=== PATIENT | female | born 2000 | race Two or more races ===

== ENCOUNTER 2024-10-01 14:39 | Emergency (ER) | payer SELFPAY ==
--- NOTE | 2024-10-01 | XR_ITS ---
Examination: PA lateral chest 2 views TECHNIQUE: Upright PA lateral chest 2 views Exam date and time: October 01, 2024 1718 hours INDICATIONS: Lightheadedness chest pain today, fever beginning 2 days ago FINDINGS: Normal heart size The lungs are clear. The osseous structures are intact IMPRESSION: No active disease
[2024-10-01 14:47] VITALS: BP 115/73; PULSE 99; RESP 17; TEMP 37.2; O2SAT 99; BMI 18.6
--- NOTE | 2024-10-01 15:07 | XR_ITS ---
Examination: CT brain head without contrast. 2-D sagittal coronal reconstructions Date and time of exam:October 01, 2024 1613 hours INDICATIONS: Dizziness loss of consciousness episode today followed by syncope CTDI: vol (mGy):45.2 DLP: (mGycm):915 Technique: Multiple CT axial sections of the brain have been obtained, 5 mm slice thickness. Contrast has not been administered. 2-D sagittal, coronal reconstructions have been obtained Low dose protocols were performed. One or more of the following dose reduction techniques were used; automated exposure control, adjustment of the mA and/or KV according to patient size, use of iterative reconstruction technique. Findings: No significant ventricular enlargement. Intra-axial or extra-axial hemorrhage density is not seen. No mass effect or midline shift Basal cisterns are not remarkable. Fourth ventricle is midline. Cranial vault intact. Impression: Negative for acute hemorrhage, mass effect or midline shift
--- NOTE | 2024-10-01 15:07 | EKG_ITS ---
[facility] Test Date: 2024-10-01 Pat Name: GINNY SHEPHERD Department: Room: - Gender: Female Can Filling Room Sweeper: : 2000 Requested By: Gavin Ha (NORM) Order Number: [id number] Reading MD: Gavin Ha (NORM) Measurements Intervals [place] Rate: 105 P: 70 OK: 159 QRS: 54 QRSD: 77 T: 60 QT: 312 QTc: 414 Interpretive Statements SINUS TACHYCARDIA ABNORMAL RHYTHM ECG No previous ECG available for comparison /store/S0/[id number].pdf
--- NOTE | 2024-10-01 15:08 | PD.EDRME ---
Rapid Medical Screening Exam RME Arrival date/time: 10/01/24 14:39 24-year-old male presents the emergency department with concerns for syncopal episode today Chief Complaint: General Adult/Misc Complain Time Seen by Provider: 10/01/24 14:53 Vital signs: Vital Signs Temperature 99.0 F 10/01/24 14:47 Pulse Rate 99 10/01/24 14:47 Respiratory Rate 17 10/01/24 14:47 Blood Pressure 115/73 10/01/24 14:47 Pulse Oximetry (%) 99 10/01/24 14:47 Oxygen Delivery Method Room Air 10/01/24 14:47
[2024-10-01 16:15] LABS: Basophils # (Auto) 0.1 Thou/mm3 (0.0-0.2); Basophils % (Auto) 1 % (0-2.5); Eosinophils # (Auto) 0.1 Thou/mm3 (0.0-0.5); Eosinophils % (Auto) 1 % (0-10); Hematocrit 37.3 % (36.0-46.0); Hemoglobin 12.5 g/dL (12.0-16.0); Immature Granulocytes % (Auto) 1 % (0-0); Immature Granulocytes Auto 0.05 Thou/mm3 (0.00-0.00); Lymphocytes # (Auto) 1.7 Thou/mm3 (1.0-4.8); Lymphocytes % (Auto) 17 % (10-50); Mean Corpuscular HGB Conc 33.5 g/dl (31.0-37.0); Mean Corpuscular Hemoglobin 27.5 pg (25.0-35.0); Mean Corpuscular Volume 82 fL (80-100); Monocytes # (Auto) 0.6 Thou/mm3 (0.0-0.8); Monocytes % (Auto) 6 % (0-12); Neutrophils # (Auto) 7.6 Thou/mm3 (1.8-7.7); Neutrophils % (Auto) 75 % (37-80); Nucleated Red Blood Cell % 0 /100 WBC (0); Platelet Count 231 Thou/mm3 (140-440); RDW Standard Deviation 40.2 fL (36.4-46.3); Red Blood Count 4.54 Miln/mm3 (4.00-5.20); White Blood Count 10.2 Thou/mm3 (3.6-11.0)
[2024-10-01 16:32] LABS: Alanine Aminotransferase 28 U/L (10-49); Albumin, Serum 4.8 gm/dL (3.5-5.0); Albumin/Globulin Ratio 1.8 (1.2-2.2); Alkaline Phosphatase 95 U/L (46-116); Anion Gap 9 (7-16); Aspartate Amino Transferase 19 U/L (0-34); BUN/Creatinine Ratio 11 Ratio (12-20); Bilirubin,Total 1.4 mg/dL (0.3-1.2); Blood Urea Nitrogen 9 mg/dL (9-23); Carbon Dioxide 24.5 mMol/L (20.0-31.0); Chloride 106 mMol/L (98-107); Creatinine (Component) 0.8 mg/dL (0.6-1.3); Globulin 2.6 gm/dL (2.3-3.5); Glucose 92 mg/dL (74-106); Osmolality,Calculated 276 (275-295); Potassium 4.1 mMol/L (3.4-5.1); Sodium 139 mMol/L (136-145); Total Protein 7.4 gm/dL (5.7-8.2); Troponin I < 0.002 ng/mL (0.0-0.045); eGFR > 60 See Note
[2024-10-01 17:10] LABS: HCG Qualitative,Urine Negative
[2024-10-01 17:26] LABS: Amphetamine/Methamp Scrn,U Negative (Negative); Barbiturate Screen,Urine Negative (Negative); Benzodiazepines Screen,Urine Negative (Negative); Benzoylecgonine Screen, Ur Negative (Negative); Fentanyl Screen,Urine Negative (Negative); Opiate Screen,Urine Negative (Negative); THC Screen,Urine Positive (Negative)
--- NOTE | 2024-10-01 18:50 | EDNOTE_ITS ---
ED General RME/HPI General Chief complaint: General Adult/Misc Complain Stated complaint: fainted at work Time Seen by Provider: 10/01/24 14:53 Source: patient Arrival date/time: 10/01/24 14:39 24-year-old female with no significant past medical history presents to the emergency department complaining of syncopal episode while changing positions getting up from the chair. Patient denies any associated symptoms but does report has not been sleeping well and might be dehydrated. Patient denies any injury to head or neck. Patient denies any fever, chills, cough, shortness of breath, or any other associated symptom. Patient denies any other complaints. Mode of arrival: ambulatory Limitations: no limitations RME / HPI RME / HPI narrative: 10/01/24 14:39 24-year-old male presents the emergency department with concerns for syncopal episode today Related Data Home Medications ?Medication ?Instructions ?Recorded ?Confirmed vit,calcium 128-iron fum 1 tab PO QDAY 04/06/22 04/09/22 28 mg iron-folic acid 800 mcg tablet Previous Rx's ?Medication ?Instructions ?Recorded ondansetron 8 mg disintegrating 8 mg PO Q6HR PRN nausea and 08/05/22 tablet vomiting #20 tabs Allergies Allergy/AdvReac Type Severity Reaction Status Date / Time No Known Allergies Allergy Verified 10/01/24 14:40 Review of Systems Review of Systems Systems Reviewed: All systems reviewed, normal except as documented Constitutional Constitutional: Reports system reviewed and no additional complaints, except as documented, Denies body ache(s), Denies chills, Denies fever(s) and Reports other (Fainting episode) Eyes Eyes: Reports system reviewed and no additional complaints, except as documented and Denies change in vision ENT Ears, Nose, Mouth, and Throat: Reports system reviewed and no additional complaints, except as documented, Denies disequilibrium, Denies dizziness, Denies sore throat and Denies vertigo Cardiovascular Cardiovascular: Reports system reviewed and no additional complaints, except as documented, Denies chest pain and Denies dyspnea Respiratory Respiratory: Reports system reviewed and no additional complaints, except as documented, Denies chest congestion, Denies cough and Denies dyspnea Gastrointestinal Gastrointestinal: Reports system reviewed and no additional complaints, except as documented, Denies abdominal pain, Denies nausea and Denies vomiting Musculoskeletal Musculoskeletal: Reports system reviewed and no additional complaints, except as documented, Denies abnormal gait and Denies arthralgias Integumentary/Breasts Skin/Breast: Reports system reviewed and no additional complaints, except as documented, Denies erythema, Denies rash and Denies wounds Neurologic Neurologic: Reports system reviewed and no additional complaints, except as documented, Denies abnormal gait, Denies disequilibrium, Denies dizziness and Denies vertigo Past Medical History Past Medical History NEUROLOGIC: Negative Neurological Disorders, Cerebrovascular Accident, Transient Ischemic Attacks (TIA), Dementia, Parkinson's Disease, Meningitis, Seizures, Epilepsy, Multiple Sclerosis, Guillain-[place] Syndrome, Spina Bifida, Paralysis, Peripheral Neuropathy, Subdural Hematoma, Migraine, Head Trauma, Spinal Cord Injury or Traumatic Brain Injury CARDIAC: Negative Cardiac Disorders, Myocardial Infarction, Cardiac Arrhythmia, Atrial Fibrillation, Angina, Heart Murmur, Coronary Artery Disease, Atherosclerotic Heart Disease, Peripheral Vascular Disease, Hypercholesterolemia, Aneurysm, Congestive Heart Failure, Congenital Heart Disease, Valvular Heart Disease, Rheumatic Fever, Cardiomyopathy, Edema, Pericarditis, Cellulitis, Deep Vein Thrombosis, Hypertension, Hypotension or Varicose Veins RESPIRATORY: Negative Chronic Obstructive Pulmonary Disease (COPD), Asthma, Bronchitis, Emphysema, Pneumonia, Pulmonary Fibrosis, Cystic Fibrosis, Tuberculosis, Pulmonary Embolism, Pulmonary Edema or Sleep Apnea GASTROINTESTINAL: Positive Gastrointestinal Disorders; Negative Hepatitis, Cirrhosis, Pancreatitis, Celiac Disease, Gall Bladder Disease, Gastrointestinal Bleed, Esophageal Varices, Mack's Esophagus, Colitis, Ulcerative Colitis, Diverticulitis, Diverticulosis, Ulcer, Irritable Bowel, Crohn's Disease, Obstructive Bowel, Hiatal Hernia, Hemorrhoids, Gastroesophageal Reflux Disease or Obesity GENITOURINARY: Negative Genitourinary Disorders, Renal Disease, Kidney Stones, Polycystic Kidney Disease, Neurogenic Bladder, Inguinal Hernia, Dialysis or Benign Prostatic Hyperplasia REPRODUCTIVE: Negative Endometriosis, Genital Herpes, Gonorrhea, Pelvic Inflammatory Disease, Previous Pregnancies, Syphilis or Uterine Prolapse MUSCULOSKELETAL: Negative Musculoskeletal Disorders ENT: Negative Cataracts, Glaucoma, Blind, Retinal Detachment, Macular Degeneration, Ear Infection, Deafness, Head Trauma or Eye Prosthesis ENDOCRINE: Negative Endocrine Disorders, Diabetes Mellitus Type 1, Diabetes Mellitus Type 2, Hypoglycemia, Craig's Syndrome, [place]'s Disease, Hyperthyroidism, Hypothyroidism, Parathyroid Disease, Pituitary Disease, Systemic Lupus Erythematosus, Syndrome of Inappropriate Antidiuretic Hormone (SIADH), Adrenal Disease or Graves' Disease HEMATOLOGIC: Negative Blood Disorders PSYCHO/SOCIAL: Negative Psychiatric Problems, Schizophrenia, Recreational Drug Use, Bipolar Disorder, Depression, Anxiety, Behavior Problems, Self-Mutilation, Attention Deficit Disorder, Attention Deficit Hyperactivity Disorder, Depression, Post Traumatic Stress Disorder or Eating Disorder OTHER HISTORY: Negative Autoimmune Disease, Autism, Anesthesia Reactions, Organ Transplant, MRSA, VRSA, Clostridium Difficile or Cancer Family History FAMILY HISTORY: Negative Family Psychiatric Problems, Family Respiratory Disorders, Family Cardiac Disorders, Family Gastrointestinal Problems, Family Cancer, Family Surgery or Family Anesthesia Reaction Surgical History SURGICAL: Negative Cardiac Surgery, Open Heart Surgery, Coronary Artery Bypass Graft, Valve Replacement, Vascular Surgery, Coronary Stent, Cardiac Catheterization, Pacemaker, Angiogram, Auto Implanted Cardiovert Defib, Carotid Endarterectomy, Endocrine Surgery, Thyroidectomy, Ear Surgery, Tympanostomy Tube, Eye Surgery, Nose Surgery, Oral Surgery, Tonsillectomy, Adenoidectomy, Cochlear Implant, Corneal Transplant, Throat Surgery, Abdominal Surgery, Tracheostomy, Gastric Bypass Surgery, Gastrostomy, Bowel Surgery, Nephrectomy, Joint Replacement, Neurologic Surgery, Vasectomy or Organ Transplant Social History SMOKING STATUS: Never smoker ED Exam General Limitations: Present no limitations General appearance: Present alert and in no apparent distress Head Head exam: Present atraumatic Eye Eye exam: Present normal appearance, PERRL and EOMI ENT ENT exam: Present normal exam, normal oropharynx and mucous membranes moist Neck Neck exam: Present normal inspection, full ROM and trachea midline Chest Chest inspection: Present normal inspection and symmetric chest wall rise Respiratory Respiratory exam: Present normal lung sounds bilaterally Cardiovascular Cardiovascular exam: Present regular rate, normal rhythm and normal heart sounds Abdominal Exam Abdominal exam: Present soft and normal bowel sounds Extremities Exam Extremities exam: Present normal inspection and full ROM Back Exam Back exam: Present normal inspection and full ROM Neurological Exam Neurological exam: Present alert, oriented X3 and CN II-XII intact Psychiatric Psychiatric exam: Present normal affect and normal mood Skin Skin exam: Present warm, dry, intact and normal color Course Quality Measures none Orders Category Date Time Status EKG (ED ONLY) *Do not use* NOW Care 10/01/24 15:[address] head/brain wo con Stat Exams 10/01/24 15:07 Completed EKG (ED Only) Stat Exams 10/01/24 15:07 Draft XR chest 2V Stat Exams 10/01/24 Completed CBC Stat Lab 10/01/24 15:59 Completed Comprehensive Metabolic Panel Stat Lab 10/01/24 15:59 Completed Drug Screen,Urine Stat Lab 10/01/24 16:37 Completed HCG Qualitative,Urine Stat Lab 10/01/24 16:37 Completed Troponin I Stat Lab 10/01/24 15:59 Completed Vital Signs Vital signs: Vital Signs Temperature 99.0 F 10/01/24 14:47 Pulse Rate 99 10/01/24 14:47 Respiratory Rate 17 10/01/24 14:47 Blood Pressure 115/73 10/01/24 14:47 Pulse Oximetry (%) 99 10/01/24 14:47 Oxygen Delivery Method Room Air 10/01/24 14:47 99% room air within normal limits Procedures -ED EKG Interpretation #1: Date of EK10/01/24 Time of EK:33 Rate: 105 Interpretation: Interpreted by me EKG Impression: Normal sinus rhythm, No acute ST-T changes, No ectopy, No ischemic changes and Normal QRS MDM Patient data External records reviewed:: [facility] previous records Clinical information provided by:: patient Social determinants that could affect healthcare access:: none Patient has the following chronic illnesses:: N/A How is presenting disease/condition affected by chronic disease/condition?: no chronic disease Evaluation data The following diagnostics were reviewed and interpreted by me:: lab results, radiology exam(s) and EKG tracing(s) Lab and/or radiology exams considered but not ordered:: Ordered Interpretation Summary: Interpreted by me Medications Medications considered but not ordered:: N/A Medication administrations:: N/A Consultations Consultation(s) initiated? (list below): No Diagnosis Differential Diagnosis ED Complaint MDM: Vasovagal, orthostatic hypotension Most likely diagnosis given after review of the tests above:: Fainting spell Admission Indicated Admission indicated?: not indicated Explain why admission is indicated or not indicated:: No admission criteria Admission Request Was there a request for admission?: No Disposition Plan Disposition Plan: Discharge Discharge Attestation Discharge Attestation: The patient and all family members were given an opportunity to ask questions and understood the discharge instructions. Discharge instructions specifically effects, indications for sooner follow up or return to the emergency department, and the expected course of current diagnosis. Patient condition: Stable Medical Decision Making MDM Narrative MDM Narrative: 24-year-old female with no significant past medical history presents to the emergency department complaining of syncopal episode while changing positions getting up from the chair. Patient denies any associated symptoms but does report has not been sleeping well and might be dehydrated. Patient denies any injury to head or neck. Patient denies any fever, chills, cough, shortness of breath, or any other associated symptom. Patient denies any other complaints. Patient GCS of 15 with appropriate behavior and ambulating with steady gait. Patient CBC was unremarkable for any leukocytosis. CMP was unremarkable. hCG was negative for . Chest x-ray was negative for any acute process. CT of head was also negative for any acute process. Patient's urine toxicology was positive for THC. Patient appears nontoxic and hemodynamically stable. Patient discharged home instructed to follow-up with primary care provider in 2 to 3 days and return to emergency department for any worsening symptoms or as needed. Differential Diagnosis Differential Diagnosis: Vasovagal, orthostatic hypotension Lab Data 10/01/24 15:59 10/01/24 15:59 Labs: Lab Results 10/01/24 10/01/24 Range/Units 15:59 16:37 WBC 10.2 (3.6-11.0) Thou/mm3 RBC 4.54 (4.00-5.20) Miln/mm3 Hgb 12.5 (12.0-16.0) g/dL Hct 37.3 (36.0-46.0) % MCV 82 (80-100) fL MCH 27.5 (25.0-35.0) pg MCHC 33.5 (31.0-37.0) g/dl RDW Std Deviation 40.2 (36.4-46.3) fL Plt Count 231 (140-440) Thou/mm3 Neut % (Auto) 75 (37-80) % Lymph % (Auto) 17 (10-50) % Barren % (Auto) 6 (0-12) % Eos % (Auto) 1 (0-10) % Baso % (Auto) 1 (0-2.5) % Neut # (Auto) 7.6 (1.8-7.7) Thou/mm3 Lymph # (Auto) 1.7 (1.0-4.8) Thou/mm3 Barren # (Auto) 0.6 (0.0-0.8) Thou/mm3 Eos # (Auto) 0.1 (0.0-0.5) Thou/mm3 Baso # (Auto) 0.1 (0.0-0.2) Thou/mm3 Immature Gran # (Auto) 0.05 H (0.00-0.00) Thou/mm3 Absolute Nucleated RBC 0.00 (0.00-0.00) Thou/mm3 Immature Gran % 1 H (0-0) % Nucleated RBC % 0 (0) /100 WBC Sodium 139 (136-145) mMol/L Potassium 4.1 (3.4-5.1) mMol/L Chloride 106 (98-107) mMol/L Carbon Dioxide 24.5 (20.0-31.0) mMol/L Anion Gap 9 (7-16) BUN 9 (9-23) mg/dL Creatinine 0.8 (0.6-1.3) mg/dL Estim Creat Clear Calc 87.0 (>60) mL/min eGFR > 60 (60 - ) See Note BUN/Creatinine Ratio 11 L (12-20) Ratio Glucose 92 (74-106) mg/dL Calculated Osmolality 276 (275-295) Calcium 10.0 (8.3-10.6) mg/dL Corrected Calcium 10.0 (8.5-10.1) mg/dL Total Bilirubin 1.4 H (0.3-1.2) mg/dL AST 19 (0-34) U/L ALT 28 (10-49) U/L Alkaline Phosphatase 95 (46-116) U/L Troponin I < 0.002 (0.0-0.045) ng/mL Total Protein 7.4 (5.7-8.2) gm/dL Albumin 4.8 (3.5-5.0) gm/dL Globulin 2.6 (2.3-3.5) gm/dL Albumin/Globulin Ratio 1.8 (1.2-2.2) Urine HCG, Qual Negative Urine Opiates Screen Negative (Negative) Urine Fentanyl Screen Negative (Negative) Ur Barbiturates Screen Negative (Negative) U Amphetamin/Meth Scrn Negative (Negative) U Benzodiazepines Scrn Negative (Negative) U Cocaine Metab Screen Negative (Negative) U Marijuana (THC) Screen Positive A (Negative) Discharge Plan Plan Patient Disposition: HOME (Self Care) Disposition Comment: Stable Prescriptions/Referrals Prescriptions/Med Rec: No Action Vitamin 28 mg iron- 800 mcg Tablet 1 tab PO QDAY ondansetron 8 mg tablet,disintegrating 8 mg PO Q6HR PRN (Reason: nausea and vomiting) Qty: 20 0RF Referrals: Romana Hdez CNM [Primary Care Provider] - In 1 week Problem List Clinical Impression: Fainting spell Patient/Caregiver Discharge Instructions Education Materials: Causes of Syncope Additional Instructions: Drink plenty of fluids and stay hydrated. Get plenty of sleep and rest. Follow-up with primary care provider in 2 to 3 days. Return to the emergency department for any worsening symptoms or as needed. Print Language: Congolese Stand Alone Forms: Nicolasa Award Info., Work/School Release, Patient Portal Info Letter PA/PROJECT CONTROLS SPECIALIST Supervising Physician PA/PROJECT CONTR[employer]S SPECIALIST Supervising Physician: Dr. Casper
== END 2024-10-01 20:03 | disposition home or self-care (01) ==
PROVIDERS: Nurse Practitioner Primary Care; Emergency Provider Emergency Medicine; PCP Advanced Practice Midwife
DX: R55 Syncope and collapse (principal); R00.0 Tachycardia, unspecified; R07.9 Chest pain, unspecified; R50.9 Fever, unspecified; R42 Dizziness and giddiness
CPT/HCPCS: 36415; 70450; 71046; 80053; 80307; 81025; 84484; 85025; 93005; 99284